=== PATIENT | male | born 1955 | race Caucasian/White ===

== ENCOUNTER → 2017-12-06 | Day surgery (SDC) | payer BC ==
[~2017-12-06] MED LIST: BYSTOLIC10 MG PO; CEFUROXIME AXE500 MG PO; COMBIVENT RESPIMAT IN; HYDROCODONE/IBUPROFE PO; HYOSCYAMINE0.125 M4 PO; JARDIANCE10 MG PO; METAGLIP1 TA2 PO; MOTRIN800 MG PO; PERCOCET 5/325M1 TAB PO; POTASSIUM CITRATE ER PO; QVAR40 MCG/ACT PO; SEREVENT D50 MCG/DOS PO; SODIUM BICARBI650 MG PO; TAMSULOSIN HCL0.4 MG PO; TRAMADOL HCL E300 MG PO; ZYLOPRIM300 MG PO
[2017-12-06 15:30] VITALS: BP 108/55
== END | disposition home or self-care (01) | DRG 825 ==
LOC: ORM 09:41
PROVIDERS: ATTEND Surgery
PROC: 0JBD0ZZ Excision of Right Upper Arm Subcutaneous Tissue and Fascia, Open Approach (ICD-10-PCS; principal; 2017-12-06)
DX: C77.3 Secondary and unspecified malignant neoplasm of axilla and upper limb lymph nodes (principal); C80.1 Malignant (primary) neoplasm, unspecified; E11.9 Type 2 diabetes mellitus without complications; E78.5 Hyperlipidemia, unspecified; I10 Essential (primary) hypertension; J44.9 Chronic obstructive pulmonary disease, unspecified

== ENCOUNTER 2018-01-24 07:41 | Day surgery (SDC) | payer BC ==
[~2018-01-24] VITALS: Ht 182.9 cm; Wt 113.4 kg
[~2018-01-24 07:41] MED LIST changes: +HUMALOG KW100 UNIT/M SC; +POTASSIUM CHLO10 MEQ PO
[2018-01-24] MEDS ORDERED: PERCOCET 5/325M1 TAB PO (11:43)
[2018-01-24 12:31] VITALS: BP 92/50
== END 2018-01-24 12:40 | disposition home or self-care (01) | DRG 825 ==
LOC: ORM 07:41
PROVIDERS: ATTEND Surgery
PROC: 07B50ZX Excision of Right Axillary Lymphatic, Open Approach, Diagnostic (ICD-10-PCS; principal; 2018-01-24)
DX: C77.3 Secondary and unspecified malignant neoplasm of axilla and upper limb lymph nodes (principal); C80.1 Malignant (primary) neoplasm, unspecified; E11.9 Type 2 diabetes mellitus without complications; E78.5 Hyperlipidemia, unspecified; I10 Essential (primary) hypertension; J44.9 Chronic obstructive pulmonary disease, unspecified